=== PATIENT | female | born 1965 | race Caucasian/White ===

== ENCOUNTER 2021-08-11 19:44 | Emergency (ER) | payer MEDICAID ==
[~2021-08-11] VITALS: Ht 162.6 cm; Wt 86.2 kg
[~2021-08-11 19:44] MED LIST: ALBU0.0912 IH; CARI350T PO
[2021-08-11 20:04] VITALS: BP 167/105
--- NOTE | 2021-08-11 20:07 | NUR ---
PT TO AWAIT IN LOBBY
--- NOTE | 2021-08-11 20:08 | NUR ---
DR GIPSON EXAMINING PT
[2021-08-11 20:46] LABS: ANION GAP 12.2 (8-16); CARBON DIOXIDE 29.4 mmol/L (21-32); CREATININE 0.6 mg/dL (0.6-1.3); POTASSIUM 3.6 mmol/L (3.5-5.1)
[2021-08-11] MEDS ORDERED: AMLO5TAB PO (20:51)
[2021-08-11 21:05] VITALS: BP 167/105
--- NOTE | 2021-08-11 21:05 | NUR ---
NO NURSING INTERVENTIONS IMPLEMENTED. Patient discharged with v/s stable. Written and verbal after care instructions given and explained. Patient alert, oriented and verbalized understanding of instructions. Ambulatory with steady gait. All questions addressed prior to discharge. ID band removed. Patient advised to follow up with PMD. Rx of NORVASC given. Patient educated on indication of medication including possible reaction and side effects. Opportunity to ask questions provided and answered.
== END 2021-08-11 21:05 | disposition home or self-care (01) ==
LOC: MED 19:44
DX: I10 Essential (primary) hypertension (principal); J45.909 Unspecified asthma, uncomplicated; K21.9 Gastro-esophageal reflux disease without esophagitis; Z79.899 Other long term (current) drug therapy; Z79.51 Long term (current) use of inhaled steroids
CPT/HCPCS: 36415; 80048; 99283

== ENCOUNTER 2022-07-10 18:50 | Emergency (ER) | payer MEDICAID ==
[~2022-07-10] VITALS: Ht 162.6 cm; Wt 107.5 kg
[~2022-07-10 18:50] MED LIST changes: +AMLO5TAB PO
[2022-07-10 19:18] VITALS: BP 117/71
--- NOTE | 2022-07-10 19:21 | NUR ---
PT AMB TO BED 12.
[2022-07-10] MEDS ORDERED: PENICILLIN G BENZATHINE L-A 1.2 MU/2 ML SYR IM ONE (19:40)
[2022-07-10 20:37] VITALS: BP 117/71
--- NOTE | 2022-07-10 20:37 | NUR ---
Patient discharged with V/S WNL. Written and verbal after care instructions given and explained about safe sex and syphilis test. Patient verbalized understanding. Ambulatory with steady gait. ID band removed. All questions addressed prior to discharge. Advised to follow up with PMD.
--- NOTE | 2022-07-10 20:39 | NUR ---
URINE COLLECTED AND SENT TO LAB. RECEIVED BY [facility]
== END 2022-07-10 20:37 | disposition home or self-care (01) ==
LOC: MED 18:50
DX: Z20.2 Contact with and (suspected) exposure to infections with a predominantly sexual mode of transmission (principal)
CPT/HCPCS: 86592; 87491; 96372; 99283; J0561

== ENCOUNTER 2022-09-09 17:10 | Emergency (ER) | payer MEDICAID ==
[~2022-09-09] VITALS: Ht 162.6 cm; Wt 99.8 kg
[2022-09-09] MEDS ORDERED: ALBUTEROL SULFATE/IPRATROPIU 3 ML SOL IH ONE (17:20)
[2022-09-09 17:21] VITALS: BP 97/61
--- NOTE | 2022-09-09 20:21 | NUR ---
PATIENT LEFT WITHOUT BEING SEEN BY DR. FIELDS. NO FURTHER CARE PROVIDED FOR PATIENT.
== END 2022-09-09 20:21 | disposition left against medical advice (07) ==
LOC: MED 17:10
DX: R06.02 Shortness of breath (principal); Z20.822 Contact with and (suspected) exposure to COVID-19; R05.9 Cough, unspecified; R21 Rash and other nonspecific skin eruption; Z53.21 Procedure and treatment not carried out due to patient leaving prior to being seen by health care provider
CPT/HCPCS: 94640